=== PATIENT | male | born 1955 | race Two or more races ===

== ENCOUNTER → 2016-05-30 | Outpatient (CLI) | payer MEDICAID ==
[~2016-05-30] VITALS: Ht 182.9 cm; Wt 92.5 kg
== END | disposition home or self-care (01) ==
LOC: HDHVI->DVH 09:54
PROVIDERS: ATTEND Internal Medicine Cardiovascular Disease
DX: Z13.0 Encounter for screening for diseases of the blood and blood-forming organs and certain disorders involving the immune mechanism (principal); I10 Essential (primary) hypertension; E11.9 Type 2 diabetes mellitus without complications
CPT/HCPCS: 78452; 93017; 96374; A9500

== ENCOUNTER → 2016-05-30 | Outpatient (CLI) | payer MEDICAID | END | disposition home or self-care (01) | LOC: Rad HDHVI 12:43 | PROVIDERS: ATTEND Internal Medicine Cardiovascular Disease | DX: R00.2 Palpitations (principal); R42 Dizziness and giddiness | CPT/HCPCS: 93306 ==